=== PATIENT | male | born 1965 | race Caucasian/White ===

== ENCOUNTER 2017-02-23 05:15 | Day surgery (SDC) | payer OTHER ==
[2017-02-16 09:44] LABS: HEMATOCRIT 44.9 % (37.9-51.0); HEMOGLOBIN 14.9 g/dL (13.5-17.0); HGB HCT DIFFERENCE -0.2; MEAN CORPUSCULAR HEMOGLOBIN 29.7 pg (27.0-33.4); MEAN CORPUSCULAR HGB CONC 33.1 g/dL (32.0-36.0); MEAN CORPUSCULAR VOLUME 90 fl (80-97); RED BLOOD COUNT 5.01 10^6/uL (4.35-5.55); RED CELL DISTRIBUTION WIDTH 13.1 % (11.5-14.0); WHITE BLOOD COUNT 5.6 10^3/uL (4.0-10.5)
--- NOTE | 2017-02-16 14:11 | EKG REPORT ---
SEVERITY:- BORDERLINE ECG - SINUS RHYTHM BORDERLINE LEFT AXIS DEVIATION BORDERLINE T WAVE ABNORMALITIES : Confirmed by: Lonny Watson MD 16-Feb-2017 14:11:06
[~2017-02-23 05:15] MED LIST: ACETAMINOPHEN 325 MG TABLET PO PRN; CEFAZOLIN 1 GM/D5W RTU 1 GM/50 ML RTUPB IV PRN; LACTATED RINGERS 1000 ML IV PRN; LIDOCAINE 0.5% INJ-PF (5 MG/ML) 50 ML SDV SUBCUT PRN
[2017-02-23] MEDS ORDERED: BUPIVACAINE HCL 0.25 % INJ/PF (2.5 MG/1 ML) 30 ML VIAL ONE (06:57)
[2017-02-23] MEDS ORDERED: PROPOFOL INJ 200 MG/20 ML VIAL IV ONE (07:01)
[2017-02-23] MEDS ORDERED: DEXMEDETOMIDINE INJ 80 MCG/20 ML VIAL IV ONE (07:01)
[2017-02-23] MEDS ORDERED: EPHEDRINE SULFATE INJ 50 MG/1 ML AMPULE ONE (07:01)
[2017-02-23] MEDS ORDERED: FENTANYL CITRATE INJ/PF 250 MCG/5 ML AMPULE ONE (07:01)
[2017-02-23] MEDS ORDERED: ACETAMINOPHEN 100 ML IV ONE (07:01)
[2017-02-23] MEDS ORDERED: MIDAZOLAM 2 MG/2 ML INJ ONE (07:01)
[2017-02-23] MEDS ORDERED: DIPHENHYDRAMINE HCL 50 MG/ML VIAL IV PRN (07:58)
[2017-02-23] MEDS ORDERED: MEPERIDINE HCL/PF INJ 25 MG/1 ML DISP.SYRIN IV PRN (07:58)
[2017-02-23] MEDS ORDERED: ONDANSETRON HCL INJ/PF 4 MG/2 ML SDV IV PRN ×2 (07:58→08:37)
[2017-02-23] MEDS ORDERED: FENTANYL CITRATE INJ/PF 100 MCG/2 ML AMPUL IV PRN ×3 (07:58)
[2017-02-23] MEDS ORDERED: PROMETHAZINE HCL INJ 25 MG/1 ML VIAL IV PRN ×2 (07:58)
[2017-02-23] MEDS ORDERED: OXYCODONE-ACETAMINOPHEN 5-325 MG TABLET PO PRN (08:37)
[2017-02-23] MEDS ORDERED: RINGERS SOLUTION,LACTATED 1,000 ML IV PRN (08:37)
--- NOTE | 2017-02-23 08:37 | Operative Report ---
Operative Report DATE OF SURGERY: 02/23/17 PREOPERATIVE DIAGNOSIS: Umbilical hernia POSTOPERATIVE DIAGNOSIS: Same OPERATION: 1. Laparoscopic lysis of adhesions. 2. Laparoscopic umbilical hernia with primary defect closure SURGEON: JORGE SOLORZANO ANESTHESIA: GA COMPLICATIONS: 9 ESTIMATED BLOOD LOSS: scant INTRAOPERATIVE FINDINGS: See below PROCEDURE: Patient was taken from the preoperative holding area to the main operating room where general anesthesia was induced. The right arm was abducted and the left arm laid at the patient's side . The abdomen was exposed, hair shaved, then prepped and draped in sterile fashion. Surgical plan and surgical timeout conducted Skin was anesthetized in the left upper quadrant with quarter percent Marcaine. Knife 11 blade used to make an incision in a varies needle inserted into the peritoneal cavity and pneumoperitoneum was established. The Veress needle was removed, and a 5 mm port was inserted, a 5 mm flexible scope was inserted under direct visualization 2 additional ports were placed one 5 mm in the left lower quadrant and a third port in the right mid field. Findings were significant for portions of the greater omentum stuck to the anterior abdominal wall at the level of the umbilicus and inferiorly along the midline. The omentum and adhesions were taken down under direct visualization using electrocautery and sharp dissection. Bleeding was negligible The fascial defect was approximately 1 cm in diameter. We closed the defect using a #1 PDS suture in a aggravated fashion using the disposable suture passer. The suture was passed transabdominally. We then reinforced the primary closure with a mesh prosthesis. A Covidian, 9 cm PARIETEX mesh was brought onto the field after checking for expiration date. It was affixed at the 12, 3, 6, 9:00 positions with a 1 PDS suture. The mesh was rolled, brought the anterior abdominal wall uneventfully through one of the port site holes. The mesh was unfolded and brought up to the anterior abdominal wall at the 12 3 , 6 and 9:00 positions using the disposable suture passer. We then secured the mesh further with approximately 15 Parietex manan. Conclusion photographs were taken. Intestines were checked and there was no evidence of injury. Sponge and needle counts are correct. The operation was deemed complete. After evacuation of CO2 wounds closed with 3-0 Vicryl benzoin and Steri-Strips after ensuring all skin and subcutaneous tissue was free of secured knots. Patient tolerated procedure well and extubated to recovery in stable condition.
--- NOTE | 2017-02-23 08:41 | PDOC DISCHARGE SUMMARY ---
Discharge Summary (SDC) - Discharge Final Diagnosis: Umbilical hernia Date of Surgery: 02/23/17 Discharge Date: 02/23/17 Condition: Good Treatment or Instructions: [facility] [address] [place] [id number] Discharge Instructions: Laparoscopic Surgery 1. General Information: a. DO NOT DRIVE a car or operate dangerous machinery for 3-4 days or while taking narcotic pain pills. b. DO NOT consume alcohol, tranquilizers, sleeping medications or any non- prescribed medications for 24 hours unless approved by your doctor or as long as taking narcotic prescription medications. c. DO NOT make important decisions or sign any important papers for the first 24 hours after surgery. d. When discharged home the same day of surgery have a responsible person with you for the first night. 2. Activity Restrictions: 4 weeks. a. NO heavy lifting, straining abdominal muscles, bending over a lot, yard work, house work, or sports for 2 weeks. b. . c. It is fine to go for walks, up and down steps, ride in a car. d. Elevate your head when sleeping/resting. 3. Treatment: a. You may shower 24 hours after surgery, no baths or swimming for 2 weeks. Remove band-aids or dressings before shower but leave paper strips (steri-strips ) on the skin to fall off on their own. If still on at postoperative visit they will be removed then. b. Drainage of fluid or blood is not unusual from an incision. If occurs, you can clean with peroxide and cotton ball daily and cover with dry gauze until the wound seals. c. If a lot of bleeding occurs, you can hold pressure with a gauze or cloth over the site for 10 minutes and it will usually stop. If bleeding continues you will need to call for possible evaluation in office or emergency room. 4. Medications: a. Toradol may be taken for pain as needed, one or two tablets every 4-6 hours. You may switch to plain Tylenol, Advil or Aleve as you transition from the narcotic. Many adults find good pain relief with Advil 600-800 mg three times a day with meals. This can cause indigestion, ulcers, and kidney problems with long-term use. b. You should resume all normal medications unless a change is specified by your doctors. c. Begin with clear liquids and may progress to your normal diet if not nauseated. No high fat, high protein foods the day of surgery. Normal diet 6. The following may occur after laparoscopic surgery: a. Shoulder or upper back ache from retained gas that should resolve in 1-2 days b. Soreness and bruising at incision sites will resolve with time. c. Scrotal swelling (labia in women) and bruising is often seen after hernia surgery. d. Sore throat e. Fatigue may last days to weeks. f. Difficulty urinating may occur and may need to come into emergency room for urinary catheter placement. 7. Notify Physician If: a. Worsening or pain not improved with pain medication b. Persistent nausea and vomiting c. Fever above 101 d. Persistent bleeding or swelling at operative site e. Unable to urinate and uncomfortable bladder 6-8 hours after surgery 8..Follow Up Care: a. Schedule a follow up appointment with your doctor for 2 weeks. In the event of any postoperative problems or questions or you may call the office during business hours or the On-Call physician evenings and weekends at [facility]. [facility] I understand the instructions for my postoperative care as described above and a copy has been given to me. Patient/Significant Other Witness Date Prescriptions: Ketorolac Tromethamine [Toradol 10 mg Tablet] 10 mg PO Q6 #20 tablet Discharge Activity: Activity As Tolerated, No Lifting Over 10 Pounds, No Lifting /Push/Pulling Report the Following to Your Physician Immediately: Shortness of Breath, Increase in Pain, Fever over 101 Degrees
[2017-02-23 10:38] VITALS: BP 102/67
[2017-02-23] MEDS ORDERED: METOCLOPRAMIDE HCL INJ/PF 10 MG/2 ML SDV ONE (11:43)
[2017-02-23] MEDS ORDERED: ROCURONIUM BROMIDE INJ 50 MG/5 ML VIAL IV ONE (11:43)
[2017-02-23] MEDS ORDERED: NEOSTIGMINE METHYLSULFATE 10 MG/10 ML VIAL ONE (11:43)
[2017-02-23] MEDS ORDERED: PHENYLEPHRINE HCL INJ/PF 10 MG/1 ML SDV ONE (11:43)
[2017-02-23] MEDS ORDERED: LIDOCAINE 2% INJ-PF (20 MG/ML) 10 ML AMPUL ONE (11:43)
[2017-02-23] MEDS ORDERED: DEXAMETHASONE SOD PHOSPHATE INJ 4 MG/1 ML VIAL ONE (11:43)
[2017-02-23] MEDS ORDERED: ONDANSETRON HCL INJ/PF 4 MG/2 ML SDV ONE (11:43)
[2017-02-23] MEDS ORDERED: SUCCINYLCHOLINE CHLORIDE INJ 200 MG/10 ML VIAL ONE (11:43)
[2017-02-23] MEDS ORDERED: GLYCOPYRROLATE INJ 0.4 MG/2 ML VIAL ONE (11:43)
== END 2017-02-23 09:40 | disposition home or self-care (01) ==
LOC: OROUT 05:15
PROVIDERS: ATTEND Surgery
PROC: 0WUF4JZ Supplement Abdominal Wall with Synthetic Substitute, Percutaneous Endoscopic Approach (ICD-10-PCS; principal; 2017-02-23 07:30)
DX: K42.9 Umbilical hernia without obstruction or gangrene (principal); I10 Essential (primary) hypertension; Z87.891 Personal history of nicotine dependence; Z79.899 Other long term (current) drug therapy
CPT/HCPCS: 93005; 36415; 85027; 93010; 49652; C1781; J2250; J0690; J3490 ×3; J1100; J3010; J2765; J2370; J0330; J2405; J2704; J0131; 750

== ENCOUNTER 2018-01-15 10:08 | Emergency (ER) | payer OTHER ==
--- NOTE | 2018-01-15 10:48 | EKG REPORT ---
SEVERITY:- NORMAL ECG - SINUS RHYTHM : Confirmed by: Kenneth Mir 15-Jan-2018 10:47:33
--- NOTE | 2018-01-15 11:31 | ER Document Report ---
ED General - General Chief Complaint: Arrhythmia Stated Complaint: POSSIBLE HEARTRATE ISSUE Notes: Patient says that he is been experiencing an abnormal pulse since yesterday afternoon. He describes these pulses as "pauses" which for a few seconds takes his breath away. His was able to feel the pauses when she checked his pulse. He had an episode similar to this about a year or so ago when he was started on blood pressure medicines and his symptoms subsided. He has not run out of his medications and has been taking them as prescribed. Patient went to his primary care provider yesterday for sinus congestion and symptoms for a couple of days. He was having some frontal headache and pressure behind his eyes. He was diagnosed with sinusitis and given amoxicillin and Mucinex with pseudoephedrine, 60 mg in each pill with the directions to take 2 pills twice a day which she started yesterday morning. He says his sinus congestion symptoms have not improved and he is still wheezing, throughout the night and noting the irregular pulses throughout the night as well. He has a cough but it is difficult to get anything up. Has not had any chest pains at all. Not aware of any fever. Not a smoker. TRAVEL OUTSIDE OF THE [place] IN LAST 30 DAYS: No - Related Data Allergies/Adverse Reactions: No Known Allergies Allergy (Verified 01/15/18 10:12) Past Medical History - Social History Smoking Status: Unknown if Ever Smoked Cigarette use (# per day): No Family History: Reviewed & Not Pertinent - Past Medical History Cardiac Medical History: Reports: Hx Hypertension - on meds Denies: Hx Coronary Artery Disease Pulmonary Medical History: Denies: Hx Asthma, Hx Bronchitis, Hx COPD, Hx Pneumonia Neurological Medical History: Denies: Hx Cerebrovascular Accident, Hx Seizures Musculoskeltal Medical History: Denies Hx Arthritis Surgical Hx: Negative Past Surgical History: Reports: None - Immunizations Hx Diphtheria, Pertussis, Tetanus Vaccination: Yes Review of Systems - Review of Systems Notes: REVIEW OF SYSTEMS: CONSTITUTIONAL : Denies fever. EENT: Denies eye, ear, mouth or throat pain or other symptoms. Nose, see HPI. CARDIOVASCULAR: Denies chest pain. See HPI. RESPIRATORY: See HPI. GASTROINTESTINAL: Denies abdominal pain or nausea, vomiting, or diarrhea. GENITOURINARY: Denies difficulty or painful urinating, urinary frequency, blood in urine. MUSCULOSKELETAL: Denies back or neck pain. Denies joint pain or swelling. SKIN: Denies rash or skin lesions. NEUROLOGICAL: Denies LOC or altered mental status. Denies sensory loss or motor deficits. ALL OTHER SYSTEMS REVIEWED AND NEGATIVE. Physical Exam - Vital signs Vitals: Resp BP Pulse Ox 16 121/84 98 01/15/18 11:01 01/15/18 11:01 01/15/18 11:01 Interpretation: Normal Course - Re-evaluation Re-evalutation: 01/15/18 12:55 Entire workup normal except for 8 bands on the patient's CBC. He is on amoxicillin antibiotics which I think will take care of that problem. His chest x-ray is normal. Patient has not had any premature beats since he arrived here. He has not felt any, his has not seen any on the monitor, and we have not see any on the monitor. Additionally, patient did take 2 of the Mucinex this morning and, in spite of that, he does not have any symptoms. Absolutely no chest pains. Suggested the patient hold off on taking the Mucinex, but take the amoxicillin. - Vital Signs Vital signs: Temp Pulse Resp BP Pulse Ox 25 H 129/85 H 96 01/15/18 13:00 01/15/18 13:00 01/15/18 13:00 - Laboratory Result Diagrams: 01/15/18 11:46 01/15/18 11:46 Laboratory results interpreted by me: 01/15/18 01/15/18 11:46 11:46 WBC 3.6 L Band Neutrophils % 8 H Monocytes % (Manual) 14 H Sodium 135.7 L - Diagnostic Test Radiology results interpreted by me: 01/15/18 12:57 Chest x-ray is normal. - EKG Interpretation by Dc EKG shows normal: Sinus rhythm - At 81/min. Rate: Normal Rhythm: NSR Additional EKG results interpreted by tn: 01/15/18 12:58 EKG is normal. Discharge - Discharge Clinical Impression: Intermittent palpitations, Premature beats, unspecified Condition: Stable Disposition: HOME, SELF-CARE Additional Instructions: Palpitations (Irregular/Rapid Heartrate) Irregular or rapid heartbeat is called "palpitation." To diagnose the cause of palpitation, we have to "catch it in the act" with an EKG. Sinus Tachycardia: This is a rapid (but NORMAL) rhythm that can be due to fever, pain, anxiety, lack of sleep, over-exertion, or drugs. Cold medications, caffeine, and diet pills are particularly likely to cause tachycardia. Usually , all that's required is rest, reassurance, and avoiding caffeine, alcohol, nicotine, and unnecessary medicines. Paroxysmal Atrial Tachycardia (PAT): This abnormally rapid heartbeat is caused by a "short circuit" in the electrical system of the heart. It is not dangerous, unless other heart disease is present. These attacks of PAT may occur occasionally for years. Medication is available for treatment. Paroxysmal Atrial Fibrillation or Atrial Flutter: This is irregular electrical activity in the upper heart chamber. These abnormal rhythms often occur with valve disease or in hearts damaged by hardening of the arteries. These rhythms usually require further testing, for example a cardiac echo. Premature Beats: Extra beats occur more commonly after caffeine, nicotine , alcohol, cold pills, diet pills. Emotional stress or fatigue also provoke them. Extra beats are only dangerous when heart disease is present. They usually need no treatment. If they're frequent, or if evidence of heart disease develops, medication can be given to suppress them. If we were unable to "catch" the palpitations on EKG, you should try to get an EKG immediately if the symptoms begin again. Contact the physician at once if you develop persistent lightheadedness, shortness of breath, chest pain , or swelling of the ankles. NORMAL EXAM AND WORKUP: At this time, your examination and workup show no significant abnormality. No significant abnormal physical findings were noted. All laboratory, EKG, and imaging (x-ray, CT scans, ultrasound) studies that were ordered show no significant abnormality. Although your examination and all studies that were ordered showed no significant abnormal finding, there are no examinations and no studies that are 100% accurate. There is always the possibility that some abnormality could exist and not be detected with physical examination or within the limits and capabilities of laboratory and other studies. You should return or follow up as you were instructed on your visit today for further evaluation if your symptoms do not resolve. Continue to take your amoxicillin as prescribed. I would suggest to hold off on taking any more of the Mucinex for now. Drink plenty of fluids. Rest. Return for reevaluation if you develop any chest pains, high fevers, or any other new symptoms. FOLLOW-UP CARE: If you have been referred to a physician for follow-up care, call the physician s office for an appointment as you were instructed or within the next two days. If you experience worsening or a significant change in your symptoms, notify the physician immediately or return to the Emergency Department at any time for re-evaluation. Referrals: FESTUS JESSICA MD [Primary Care Provider] - Follow up as needed
[2018-01-15 12:06] LABS: MEAN CORPUSCULAR HEMOGLOBIN 29.7 pg (27.0-33.4); MEAN CORPUSCULAR HGB CONC 33.4 g/dL (32.0-36.0); MEAN CORPUSCULAR VOLUME 89 fl (80-97); PLATELET COUNT 214 10^3/uL (150-450); RED BLOOD COUNT 5.05 10^6/uL (4.35-5.55); RED CELL DISTRIBUTION WIDTH 13.2 % (11.5-14.0); WHITE BLOOD COUNT 3.6 10^3/uL (4.0-10.5)
--- NOTE | 2018-01-15 12:08 | RADIOLOGY REPORT (SQ) ---
EXAM DESCRIPTION: CHEST PA/LAT COMPLETED DATE/TIME: 01/15/2018 11:58 am REASON FOR STUDY: Cough and chest congestion COMPARISON: 01/29/2011. EXAM PARAMETERS: NUMBER OF VIEWS: two views TECHNIQUE: Digital Frontal and Lateral radiographic views of the chest acquired. RADIATION DOSE: NA LIMITATIONS: none FINDINGS: LUNGS AND PLEURA: No opacities, masses or pneumothorax. No pleural effusion. MEDIASTINUM AND HILAR STRUCTURES: No masses or contour abnormalities. HEART AND VASCULAR STRUCTURES: Heart normal size. No evidence for failure. BONES: No acute findings. HARDWARE: None in the chest. OTHER: No other significant finding. IMPRESSION: NO SIGNIFICANT RADIOGRAPHIC FINDING IN THE CHEST. TECHNICAL DOCUMENTATION: JOB ID: [id number] [employer]- All Rights Reserved Reading location - IP/workstation name: [email or web address]
[2018-01-15 12:21] LABS: ALANINE AMINOTRANSFERASE 34 U/L (21-72); ALCOHOL < 10 mg/dL (NONE DETECTED); ALKALINE PHOSPHATASE 105 U/L (38-126); ANION GAP 13 (5-19); ASPARTATE AMINO TRANSFERASE 29 U/L (17-59); BILIRUBIN,DIRECT 0.2 mg/dL (0.0-0.4); BILIRUBIN,TOTAL 0.5 mg/dL (0.2-1.3); BLOOD UREA NITROGEN 16 mg/dL (7-20); CALCIUM 8.7 mg/dL (8.4-10.2); CARBON DIOXIDE 23 mmol/L (22-30); CHLORIDE 100 mmol/L (98-107); GLUCOSE 87 mg/dL (75-110); POTASSIUM 4.1 mmol/L (3.6-5.0); SODIUM 135.7 mmol/L (137-145); TOTAL PROTEIN 6.3 g/dL (6.3-8.2)
[2018-01-15 12:23] LABS: ABSOLUTE LYMPHOCYTES# (MANUAL) 0.6 10^3/uL (0.5-4.7); ABSOLUTE MONOCYTES # (MANUAL) 0.5 10^3/uL (0.1-1.4); ABSOLUTE NEUTROPHILS# (MANUAL) 2.4 10^3/uL (1.7-8.2); BAND NEUTROPHILS % (MANUAL) 8 % (3-5); BASOPHILS % (MANUAL) 0 % (0-2); EOSINOPHILS % (MANUAL) 1 % (0-6); HYPOCHROMASIA SLIGHT; LYMPHOCYTES % (MANUAL) 17 % (13-45); MONOCYTES % (MANUAL) 14 % (3-13); PLATELET COMMENT ADEQUATE; SEGMENTED NEUTROPHILS % (MAN) 60 % (42-78); TOTAL CELLS COUNTED 100
[2018-01-15 12:31] LABS: CREATINE KINASE MB 0.44 ng/mL (<4.55)
[2018-01-15 12:33] LABS: TROPONIN I < 0.012 ng/mL
[2018-01-15 13:02] VITALS: BP 129/85
== END 2018-01-15 13:07 | disposition home or self-care (01) ==
LOC: ER 10:08
DX: I49.40 Unspecified premature depolarization (principal); R00.2 Palpitations; R09.81 Nasal congestion; R51 Headache
CPT/HCPCS: 36415; 71046; 80053; 80307; 82553; 83735; 84484; 85025; 93005; 93010; 99285

== ENCOUNTER 2018-07-21 01:41 | Inpatient (IN) | payer OTHER ==
[2018-07-21] MEDS ORDERED: DILTIAZEM HCL/D5W 125 MG/125 ML RTUINJ IV PRN ×2 (01:56→09:39)
[2018-07-21] MEDS ORDERED: DILTIAZEM HCL INJ 25 MG/5 ML VIAL IV ONE (01:57)
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
[2018-07-21 02:22] LABS: ABSOLUTE BASOPHILS # (AUTO) 0.1 10^3/uL (0.0-0.2); ABSOLUTE EOSINOPHILS # (AUTO) 0.4 10^3/uL (0.0-0.6); ABSOLUTE LYMPHOCYTES (AUTO) 3.5 10^3/uL (0.5-4.7); ABSOLUTE MONOCYTES (AUTO) 1.1 10^3/uL (0.1-1.4); ABSOLUTE NEUT (AUTO) 3.3 10^3/uL (1.7-8.2); BASOPHILS % (AUTO) 0.9 % (0-2); EOSINOPHILS % (AUTO) 4.3 % (0-6); HEMATOCRIT 43.9 % (37.9-51.0); HEMOGLOBIN 14.6 g/dL (13.5-17.0); LYMPHOCYTES % (AUTO) 42.1 % (13-45); MEAN CORPUSCULAR HEMOGLOBIN 29.7 pg (27.0-33.4); MEAN CORPUSCULAR HGB CONC 33.1 g/dL (32.0-36.0); MEAN CORPUSCULAR VOLUME 90 fl (80-97); MONOCYTES % (AUTO) 13.3 % (3-13); PLATELET COUNT 340 10^3/uL (150-450); RED CELL DISTRIBUTION WIDTH 13.4 % (11.5-14.0); SEGMENTED NEUTROPHILS % (AUTO) 39.4 % (42-78); TOTAL CELLS COUNTED % (AUTO) 100 %; WHITE BLOOD COUNT 8.4 10^3/uL (4.0-10.5)
[2018-07-21] MEDS ORDERED: NITROGLYCERIN 2% OINTMENT 1 GM PACKET TP ONE (02:31)
[2018-07-21 02:32] LABS: ALANINE AMINOTRANSFERASE 37 U/L (21-72); ALBUMIN 4.4 g/dL (3.5-5.0); ALKALINE PHOSPHATASE 90 U/L (38-126); ANION GAP 13 (5-19); ASPARTATE AMINO TRANSFERASE 30 U/L (17-59); BILIRUBIN,DIRECT 0.3 mg/dL (0.0-0.4); BILIRUBIN,TOTAL 1.1 mg/dL (0.2-1.3); BLOOD UREA NITROGEN 21 mg/dL (7-20); CALCIUM 9.6 mg/dL (8.4-10.2); CARBON DIOXIDE 22 mmol/L (22-30); CHLORIDE 108 mmol/L (98-107); GLUCOSE 109 mg/dL (75-110); POTASSIUM 4.1 mmol/L (3.6-5.0); SODIUM 142.6 mmol/L (137-145); TOTAL PROTEIN 7.4 g/dL (6.3-8.2)
--- NOTE | 2018-07-21 02:32 | RADIOLOGY REPORT (SQ) ---
EXAM DESCRIPTION: XR CHEST 1 VIEW COMPLETED DATE/TME: 07/21/2018 01:57 CLINICAL HISTORY: 53 years Male, atrial fib COMPARISON: None. NUMBER OF VIEWS/TECHNIQUE: 1/AP FINDINGS: Adequate lung volume, small left basilar atelectasis or scar, normal cardiac silhouette, and intact bony thorax. IMPRESSION: No acute cardiopulmonary findings.
[2018-07-21 02:40] LABS: INTERNATIONAL RATION (INR) 0.91; PROTHROMBIN TIME 12.8 SEC (11.4-15.4)
[2018-07-21 02:41] LABS: PARTIAL THROMBOPLASTIN TIME 28.7 SEC (23.5-35.8)
[2018-07-21] MEDS ORDERED: LORAZEPAM INJ 2 MG/1 ML VIAL IV ONE (03:14)
[2018-07-21] MEDS ORDERED: ASPIRIN 81 MG TABLET, CHEWABLE PO ONE (03:17)
[2018-07-21] MEDS ORDERED: ENOXAPARIN SODIUM INJ 100 MG/1 ML DISP.SYRIN SUBCUT SCH ×3 (04:00→18:00)
[2018-07-21] MEDS ORDERED: ZOLPIDEM TARTRATE 5 MG TABLET PO PRN (05:10)
[2018-07-21] MEDS ORDERED: ACETAMINOPHEN 325 MG TABLET PO PRN (05:10)
--- NOTE | 2018-07-21 05:58 | PDOC H&P ---
History of Present Illness Admission Date/PCP: 07/21/18 04:01 FESTUS JESSICA MD Patient complains of: Palpitations History of Present Illness: ROSS CALHOUN III is a 53 year old male with a past medical history of hypertension and intermittent palpitations over the last 3 years. Today he presents with sudden onset of palpitations and chest tightness prompting evaluation in the emergency room he is found to have A. fib with RVR he receives IV Cardizem with improvement of symptoms and heart rate in the low 100s. He is referred to the hospitalist for admission. Patient adamantly denies heat intolerance or weight loss, new medication, Sudafed, caffeine for alcohol. Biochemical workup is unremarkable, family history of atrial fibrillation in father. Past Medical History Cardiac Medical History: Reports: Atrial Fibrillation, Hypertension - on meds Denies: Coronary Artery Disease Pulmonary Medical History: Denies: Asthma, Bronchitis, Chronic Obstructive Pulmonary Disease (COPD), Pneumonia EENT Medical History: Reports: None Neurological Medical History: Reports: None Denies: Seizures Endocrine Medical History: Reports: None Malignancy Medical History: Reports: None GI Medical History: Reports: None Musculoskeltal Medical History: Reports: None Denies: Arthritis Skin Medical History: Reports: None Psychiatric Medical History: Reports: None Hematology: Reports: None Denies: Anemia Infectious Medical History: Reports: None Past Surgical History Past Surgical History: Reports: None Social History Information Source: Patient Lives with: Spouse/Significant other Smoking Status: Never Smoker Frequency of Alcohol Use: None Drugs: None - Advance Directive Resuscitation Status: Full Code Family History Family History: None Parental Family History Reviewed: Yes Children Family History Reviewed: Yes Sibling(s) Family History Reviewed.: Yes Medication/Allergy Home Medications: Losartan Potassium 50 mg PO BID 02/04/17 Ketorolac Tromethamine [Toradol 10 mg Tablet] 10 mg PO Q6 #20 tablet 02/23/17 Allergies/Adverse Reactions: No Known Allergies Allergy (Verified 01/15/18 10:12) Review of Systems Constitutional: ABSENT: chills, fever(s), headache(s), weight gain, weight loss Eyes: ABSENT: visual disturbances Ears: ABSENT: hearing changes Cardiovascular: PRESENT: as per HPI, palpitations. ABSENT: chest pain, dyspnea on exertion, edema, orthropnea Respiratory: ABSENT: cough, hemoptysis Gastrointestinal: ABSENT: abdominal pain, constipation, diarrhea, hematemesis, hematochezia, nausea, vomiting Genitourinary: ABSENT: dysuria, hematuria Musculoskeletal: ABSENT: joint swelling Integumentary: ABSENT: rash, wounds Neurological: ABSENT: abnormal gait, abnormal speech, confusion, dizziness, focal weakness, syncope Psychiatric: ABSENT: anxiety, depression, homidical ideation, suicidal ideation Endocrine: ABSENT: cold intolerance, heat intolerance, polydipsia, polyuria Hematologic/Lymphatic: ABSENT: easy bleeding, easy bruising Physical Exam Vital Signs: Temp Pulse Resp BP Pulse Ox 97.5 F 108 H 18 106/69 95 07/21/18 01:47 07/21/18 01:47 07/21/18 05:41 07/21/18 05:41 07/21/18 05:41 General appearance: PRESENT: no acute distress, well-developed, well-nourished Head exam: PRESENT: atraumatic, normocephalic Eye exam: PRESENT: conjunctiva pink, EOMI, PERRLA. ABSENT: scleral icterus Ear exam: PRESENT: normal external ear exam Mouth exam: PRESENT: moist, tongue midline Neck exam: ABSENT: carotid bruit, JVD, lymphadenopathy, thyromegaly Respiratory exam: PRESENT: clear to auscultation elise. ABSENT: rales, rhonchi, wheezes Cardiovascular exam: PRESENT: irregular rhythm, tachycardia. ABSENT: clicks, diastolic murmur, gallop, rubs, systolic murmur Pulses: PRESENT: normal dorsalis pedis pul Vascular exam: PRESENT: normal capillary refill GI/Abdominal exam: PRESENT: normal bowel sounds, soft. ABSENT: distended, guarding, mass, organolmegaly, rebound, tenderness Rectal exam: PRESENT: deferred Extremities exam: PRESENT: full ROM. ABSENT: calf tenderness, clubbing, pedal edema Neurological exam: PRESENT: alert, awake, oriented to person, oriented to place , oriented to time, oriented to situation, CN II-XII grossly intact. ABSENT: motor sensory deficit Psychiatric exam: PRESENT: appropriate affect, normal mood. ABSENT: homicidal ideation, suicidal ideation Skin exam: PRESENT: dry, intact, warm. ABSENT: cyanosis, rash Results Impressions: Chest X-Ray 07/21/18 01:57 IMPRESSION: No acute cardiopulmonary findings. Assessment & Plan - Diagnosis (1) Atrial fibrillation Qualifiers: Atrial fibrillation type: persistent Qualified Code(s): I48.1 - Persistent atrial fibrillation Is this a current diagnosis for this admission?: Yes Plan: Apparently paroxysmal by history, positive family history otherwise unidentifiable current reversible risk. IMCU admission, IV Cardizem, full dose Lovenox and education. Follow-up 2D echo and cardiology consult (2) Hypertension Is this a current diagnosis for this admission?: Yes Plan: Optimize rate control with addition of GUILHERME inhibitor as tolerated - Time Time Spent: 50 to 70 Minutes - Inpatient Certification Medical Necessity: Need Close Monitoring Due to Risk of Patient Decompensation
[2018-07-21 06:04] LABS: CREATINE KINASE MB 1.55 ng/mL (<4.55)
[2018-07-21 06:17] LABS: TROPONIN I < 0.012 ng/mL
[2018-07-21 09:27] LABS: FREE T3 4.59 pg/mL (2.77-5.27); FREE T4 (FREE THYROXINE) 1.08 ng/dL (0.78-2.19)
[2018-07-21] MEDS: DOCUSATE SODIUM 100 MG CAPSULE PO SCH ×2 (10:06→17:54)
[2018-07-21 10:40] LABS: APPEARANCE,URINE CLEAR; BILIRUBIN,URINE NEGATIVE (NEGATIVE); COLOR,URINE YELLOW; GLUCOSE, URINE NEGATIVE (NEGATIVE); KETONES,URINE NEGATIVE (NEGATIVE); LEUKOCYTE ESTERASE,URINE NEGATIVE (NEGATIVE); NITRITE,URINE NEGATIVE (NEGATIVE); PROTEIN,URINE NEGATIVE (NEGATIVE); URINE SPECIFIC GRAVITY 1.016; UROBILINOGEN,URINE NEGATIVE mg/dL (<2.0)
[2018-07-21 11:44] LABS: TROPONIN I < 0.012 ng/mL
[2018-07-21] MEDS ORDERED: METOPROLOL TARTRATE 25 MG TABLET PO ONE (12:00)
[2018-07-21] MEDS: APIXABAN 5 MG TABLET PO SCH (17:54)
[2018-07-21] MEDS: METOPROLOL TARTRATE 25 MG TABLET PO SCH (22:02)
--- NOTE | 2018-07-21 23:56 | EKG REPORT ---
SEVERITY:- BORDERLINE ECG - SINUS RHYTHM LEFT AXIS DEVIATION BORDERLINE T WAVE ABNORMALITIES : Confirmed by: Kenneth Mir 21-Jul-2018 23:55:01
--- NOTE | 2018-07-21 23:56 | EKG REPORT ---
SEVERITY:- ABNORMAL ECG - ATRIAL FIBRILLATION BORDERLINE ST DEPRESSION, ANTEROLATERAL LEADS BORDERLINE PROLONGED QT INTERVAL : Confirmed by: Kenneth Mir 21-Jul-2018 23:55:35
--- NOTE | 2018-07-21 23:56 | EKG REPORT ---
SEVERITY:- ABNORMAL ECG - ATRIAL FIBRILLATION : Confirmed by: Kenneth Mir 21-Jul-2018 23:55:19
[2018-07-22 05:04] LABS: ABSOLUTE BASOPHILS # (AUTO) 0.1 10^3/uL (0.0-0.2); ABSOLUTE EOSINOPHILS # (AUTO) 0.2 10^3/uL (0.0-0.6); ABSOLUTE LYMPHOCYTES (AUTO) 2.2 10^3/uL (0.5-4.7); ABSOLUTE MONOCYTES (AUTO) 0.8 10^3/uL (0.1-1.4); ABSOLUTE NEUT (AUTO) 2.7 10^3/uL (1.7-8.2); HEMATOCRIT 41.4 % (37.9-51.0); HEMOGLOBIN 13.9 g/dL (13.5-17.0); MEAN CORPUSCULAR HEMOGLOBIN 29.9 pg (27.0-33.4); MEAN CORPUSCULAR HGB CONC 33.6 g/dL (32.0-36.0); MEAN CORPUSCULAR VOLUME 89 fl (80-97); MONOCYTES % (AUTO) 12.5 % (3-13); PLATELET COUNT 283 10^3/uL (150-450); RED BLOOD COUNT 4.65 10^6/uL (4.35-5.55); RED CELL DISTRIBUTION WIDTH 13.3 % (11.5-14.0); SEGMENTED NEUTROPHILS % (AUTO) 45.5 % (42-78); TOTAL CELLS COUNTED % (AUTO) 100 %
[2018-07-22 05:24] LABS: ANION GAP 5 (5-19); BLOOD UREA NITROGEN 20 mg/dL (7-20); CALCIUM 8.9 mg/dL (8.4-10.2); CARBON DIOXIDE 25 mmol/L (22-30); CHLORIDE 107 mmol/L (98-107); CHOLESTEROL 184.86 mg/dL (0-200); GLUCOSE 95 mg/dL (75-110); POTASSIUM 4.5 mmol/L (3.6-5.0); SODIUM 136.9 mmol/L (137-145); TRIGLYCERIDES 116 mg/dL (<150)
[2018-07-22 05:35] LABS: DIRECT LDL 102 mg/dL (<100)
[2018-07-22 08:55] VITALS: BP 135/72
[2018-07-22] MEDS: APIXABAN 5 MG TABLET PO SCH (09:12)
[2018-07-22] MEDS: DOCUSATE SODIUM 100 MG CAPSULE PO SCH (09:12)
[2018-07-22] MEDS: METOPROLOL TARTRATE 25 MG TABLET PO SCH (09:12)
[2018-07-22] MEDS ORDERED: ASPIRIN 81 MG TABLET, CHEWABLE PO SCH (10:00)
--- NOTE | 2018-07-22 14:07 | PDOC DISCHARGE SUMMARY ---
General - Admit/Disc Date/PCP Admission Date/Primary Care Provider: 07/21/18 04:01 FESTUS JESSICA MD Discharge Date: 07/22/18 - Discharge Diagnosis (1) Atrial fibrillation Is this a current diagnosis for this admission?: Yes (2) Hypertension Is this a current diagnosis for this admission?: Yes - Additional Information Resuscitation Status: Full Code Prescriptions: Apixaban [Eliquis 5 mg Tablet] 5 mg PO BID #60 tablet Aspirin [Aspirin 81 mg Chewable Tablet] 81 mg PO DAILY #30 tab.chew Metoprolol Tartrate [Lopressor 25 mg Tablet] 12.5 mg PO Q12 #30 tablet Home Medications: Losartan Potassium 50 mg PO Q12 02/04/17 Acetaminophen [Tylenol 325 mg Tablet] 650 mg PO Q4HP PRN tablet 07/22/18 Apixaban [Eliquis 5 mg Tablet] 5 mg PO BID #60 tablet 07/22/18 Aspirin [Aspirin 81 mg Chewable Tablet] 81 mg PO DAILY #30 tab.chew 07/22/18 Docusate Sodium [Colace 100 mg Capsule] 100 mg PO BID capsule 07/22/18 Metoprolol Tartrate [Lopressor 25 mg Tablet] 12.5 mg PO Q12 #30 tablet 07/22/18 Zolpidem Tartrate [Ambien 5 mg Tablet] 5 mg PO HSP PRN tablet 07/22/18 History of Present Illness History of Present Illness: ROSS CALHOUN III is a 53 year old male with a past medical history of hypertension and intermittent palpitations who presented with sudden onset of palpitations and chest tightness prompting evaluation in the emergency room he is found to have A. fib with RVR. He received IV Cardizem with improvement of symptoms and heart rate in the low 100s. He was referred to the hospitalist for admission. Patient denies heat intolerance or weight loss, intake of new medication, Sudafed, caffeine or alcohol. Biochemical workup is unremarkable, family history of atrial fibrillation in father. Hospital Course Hospital Course: Mr. Calhoun is a 53-year-old male with a past medical history of hypertension and possible first episode of transient tachyarrhythmia 7-8 years ago who presented with palpitations. Patient was noted to be in atrial fibrillation with RVR on presentation. He was started Cardizem drip and therapeutic Lovenox. Troponins were negative. Cardiology was consulted. Patient's IV Cardizem was initially increased and patient converted to sinus rhythm. Patient was then started on oral Lopressor. Patient has a CHADVASC score of 1. Cardiology recommended chronic anticoagulation and aspirin. Discussed risks and benefits in length with patient and regarding switching to Eliquis. Patient and are amenable to continuing long-term anticoagulation. Patient will closely follow- up with Dr. Craig next week. He was given Dr. Shane's cell phone number to set up an appointment with him. Patient did have slightly elevated TSH with normal T3 and T4. He does not have symptoms of hypothyroidism at this time. This is subclinical hypothyroidism and will not be treated at this time. Recommended repeating TSH after 1-2 months with PCP. Physical Exam Vital Signs: Temp Pulse Resp BP Pulse Ox 97.5 F 57 L 16 118/74 99 07/22/18 03:37 07/22/18 03:37 07/22/18 03:37 07/22/18 03:37 07/22/18 03:37 Intake & Output 07/21/18 07/22/18 07/23/18 06:59 06:59 06:59 Intake Total 756 Balance 756 Weight 210 lb 5.136 oz 186 lb 8.177 oz General appearance: PRESENT: no acute distress, well-developed, well-nourished Head exam: PRESENT: atraumatic, normocephalic Eye exam: PRESENT: conjunctiva pink, EOMI, PERRLA. ABSENT: scleral icterus Ear exam: PRESENT: normal external ear exam Neck exam: ABSENT: carotid bruit, JVD, lymphadenopathy, thyromegaly Respiratory exam: PRESENT: clear to auscultation elise. ABSENT: rales, rhonchi, wheezes Cardiovascular exam: PRESENT: RRR. ABSENT: diastolic murmur, rubs, systolic murmur Pulses: PRESENT: normal dorsalis pedis pul GI/Abdominal exam: PRESENT: normal bowel sounds, soft. ABSENT: distended, guarding, mass, organolmegaly, rebound, tenderness Rectal exam: PRESENT: deferred Neurological exam: PRESENT: alert, awake, oriented to person, oriented to place , oriented to time, oriented to situation, CN II-XII grossly intact. ABSENT: motor sensory deficit Results Laboratory Results: 07/22/18 04:40 07/22/18 04:40 07/21/18 07/21/18 07/22/18 05:26 10:20 04:40 WBC RBC Hgb Hct MCV MCH MCHC RDW Plt Count Seg Neutrophils % Lymphocytes % Monocytes % Eosinophils % Basophils % Absolute Neutrophils Absolute Lymphocytes Absolute Monocytes Absolute Eosinophils Absolute Basophils Sodium 136.9 L Potassium 4.5 Chloride 107 Carbon Dioxide 25 Anion Gap 5 BUN 20 Creatinine 0.91 Est GFR ( Amer) > 60 Est GFR (Non-Af Amer) > 60 Glucose 95 Calcium 8.9 Triglycerides 116 Cholesterol 184.86 LDL Cholesterol Direct 102 H VLDL Cholesterol 23.0 HDL Cholesterol 44 Free T4 1.08 Free T3 pg/mL 4.59 Urine Color YELLOW Urine Appearance CLEAR Urine pH 5.0 Ur Specific [place] 1.016 Urine Protein NEGATIVE Urine Glucose (UA) NEGATIVE Urine Ketones NEGATIVE Urine Blood NEGATIVE Urine Nitrite NEGATIVE Ur Leukocyte Esterase NEGATIVE Urine WBC (Auto) 1 Urine RBC (Auto) 3 07/22/18 04:40 WBC 6.0 RBC 4.65 Hgb 13.9 Hct 41.4 MCV 89 MCH 29.9 MCHC 33.6 RDW 13.3 Plt Count 283 Seg Neutrophils % 45.5 Lymphocytes % 37.0 Monocytes % 12.5 Eosinophils % 4.0 Basophils % 1.0 Absolute Neutrophils 2.7 Absolute Lymphocytes 2.2 Absolute Monocytes 0.8 Absolute Eosinophils 0.2 Absolute Basophils 0.1 Sodium Potassium Chloride Carbon Dioxide Anion Gap BUN Creatinine Est GFR ( Amer) Est GFR (Non-Af Amer) Glucose Calcium Triglycerides Cholesterol LDL Cholesterol Direct VLDL Cholesterol HDL Cholesterol Free T4 Free T3 pg/mL Urine Color Urine Appearance Urine pH Ur Specific [place] Urine Protein Urine Glucose (UA) Urine Ketones Urine Blood Urine Nitrite Ur Leukocyte Esterase Urine WBC (Auto) Urine RBC (Auto) 07/21/18 07/21/18 07/21/18 05:26 05:26 11:01 Creatine Kinase 163 126 CK-MB (CK-2) 1.55 Troponin I < 0.012 07/21/18 11:01 Creatine Kinase CK-MB (CK-2) 1.40 Troponin I < 0.012 Impressions: Chest X-Ray 07/21/18 01:57 IMPRESSION: No acute cardiopulmonary findings. Qualifiers - * PATIENT BEING DISCHARGED WITH ANY OF THE FOLLOWING DIAGNOSIS: No
--- NOTE | 2018-07-22 21:22 | EKG REPORT ---
SEVERITY:- NORMAL ECG - SINUS RHYTHM NON SPECIFIC IVCD : Confirmed by: Kenneth Mir 22-Jul-2018 21:21:48
== END 2018-07-22 10:56 | disposition home or self-care (01) | DRG 310 ==
LOC: ER 01:41 → EH 04:01 → 3W 06:14
PROVIDERS: ADMIT Internal Medicine; ATTEND Internal Medicine
DX: I48.1 Persistent atrial fibrillation (principal); I10 Essential (primary) hypertension; R94.6 Abnormal results of thyroid function studies; Z79.82 Long term (current) use of aspirin; Z79.01 Long term (current) use of anticoagulants; Z79.899 Other long term (current) drug therapy; Z82.49 Family history of ischemic heart disease and other diseases of the circulatory system
CPT/HCPCS: 36415; 71045; 80048; 80053; 80061; 81001; 82550; 82553; 83735; 84439; 84443; 84481; 84484; 85025; 85379; 85610; 85730; 93005; 93010; 96365; 99285; J3490

== ENCOUNTER 2019-11-14 09:38 | Emergency (ER) | payer OTHER ==
--- NOTE | 2019-11-14 10:07 | ER Document Report ---
ED Medical Screen (RME) - General Chief Complaint: Urinary Problem Stated Complaint: URINARY ISSUE Time Seen by Provider: 11/14/19 10:00 Primary Care Provider: FESTUS JESSICA MD [Primary Care Provider] - Follow up as needed Mode of Arrival: Ambulatory Information source: Patient Notes: 54-year-old male with history of high blood pressure arrhythmias on Eliquis presents to the emergency department with complaints that couple days ago his urine started becoming cloudier. He reports he did increase his fluid intake, water. He reports today it was dark-colored almost bloody. He denies pain of any kind. Denies fever vomiting diarrhea. Denies flank pain. Denies problems voiding. Denies urinary frequency. Reports he has a history of a kidney stone many years ago. I have greeted and performed a rapid initial assessment of this patient. A comprehensive ED assessment and evaluation of the patient, analysis of test results and completion of the medical decision making process will be conducted by additional ED providers. TRAVEL OUTSIDE OF THE [place] IN LAST 30 DAYS: No - Related Data Allergies/Adverse Reactions: No Known Allergies Allergy (Verified 11/14/19 10:00) Home Medications: losarten, eloquis, metoprolol Past Medical History - Social History Chew tobacco use (# tins/day): No Frequency of alcohol use: None Drug Abuse: None - Past Medical History Cardiac Medical History: Reports: Hx Atrial Fibrillation, Hx Hypertension - on meds Denies: Hx Coronary Artery Disease Pulmonary Medical History: Denies: Hx Asthma, Hx Bronchitis, Hx COPD, Hx Pneumonia Neurological Medical History: Denies: Hx Cerebrovascular Accident, Hx Seizures Renal/ Medical History: Denies: Hx Peritoneal Dialysis Musculoskeltal Medical History: Denies Hx Arthritis - Immunizations Hx Diphtheria, Pertussis, Tetanus Vaccination: Yes Physical Exam - Vital signs Vitals: Temp Pulse Resp BP Pulse Ox 97.6 F 80 20 147/86 H 98 11/14/19 09:45 11/14/19 09:45 11/14/19 09:45 11/14/19 09:45 11/14/19 09:45 Course - Vital Signs Vital signs: Temp Pulse Resp BP Pulse Ox 97.6 F 80 20 147/86 H 98 11/14/19 09:45 11/14/19 09:45 11/14/19 09:45 11/14/19 09:45 11/14/19 09:45 Doctor's Discharge - Discharge Referrals: FESTUS JESSICA MD [Primary Care Provider] - Follow up as needed
[2019-11-14 10:40] LABS: ABSOLUTE BASOPHILS # (AUTO) 0.1 10^3/uL (0.0-0.2); ABSOLUTE EOSINOPHILS # (AUTO) 0.2 10^3/uL (0.0-0.6); ABSOLUTE MONOCYTES (AUTO) 0.8 10^3/uL (0.1-1.4); BASOPHILS % (AUTO) 1.1 % (0-2); EOSINOPHILS % (AUTO) 2.8 % (0-6); HEMATOCRIT 44.7 % (37.9-51.0); HEMOGLOBIN 14.8 g/dL (13.5-17.0); LYMPHOCYTES % (AUTO) 32.8 % (13-45); MEAN CORPUSCULAR HEMOGLOBIN 29.6 pg (27.0-33.4); MEAN CORPUSCULAR HGB CONC 33.1 g/dL (32.0-36.0); MEAN CORPUSCULAR VOLUME 89 fl (80-97); MONOCYTES % (AUTO) 13.4 % (3-13); PLATELET COUNT 320 10^3/uL (150-450); RED CELL DISTRIBUTION WIDTH 13.2 % (11.5-14.0); SEGMENTED NEUTROPHILS % (AUTO) 49.9 % (42-78); TOTAL CELLS COUNTED % (AUTO) 100 %
[2019-11-14 10:59] LABS: APPEARANCE,URINE SLIGHTLY-CLOUDY; BILIRUBIN,URINE NEGATIVE (NEGATIVE); COLOR,URINE RED; GLUCOSE, URINE NEGATIVE (NEGATIVE); KETONES,URINE NEGATIVE (NEGATIVE); LEUKOCYTE ESTERASE,URINE NEGATIVE (NEGATIVE); NITRITE,URINE NEGATIVE (NEGATIVE); PROTEIN,URINE 30 mg/dL (NEGATIVE); URINE SPECIFIC GRAVITY 1.012; UROBILINOGEN,URINE NEGATIVE mg/dL (<2.0)
[2019-11-14 11:02] LABS: ALBUMIN 4.6 g/dL (3.5-5.0); ALKALINE PHOSPHATASE 93 U/L (38-126); ANION GAP 9 (5-19); ASPARTATE AMINO TRANSFERASE 29 U/L (17-59); BILIRUBIN,DIRECT 0.2 mg/dL (0.0-0.4); BILIRUBIN,TOTAL 0.7 mg/dL (0.2-1.3); BLOOD UREA NITROGEN 26 mg/dL (7-20); CALCIUM 9.9 mg/dL (8.4-10.2); CARBON DIOXIDE 29 mmol/L (22-30); CHLORIDE 102 mmol/L (98-107); GLUCOSE 97 mg/dL (75-110); POTASSIUM 4.5 mmol/L (3.6-5.0); TOTAL PROTEIN 7.8 g/dL (6.3-8.2)
--- NOTE | 2019-11-14 11:42 | ER Document Report ---
ED General - General Chief Complaint: Urinary Problem Stated Complaint: URINARY ISSUE Time Seen by Provider: 11/14/19 10:00 Primary Care Provider: FESTUS JESSICA MD [PEDIATRICS] - Follow up as needed Mode of Arrival: Ambulatory TRAVEL OUTSIDE OF THE [place] IN LAST 30 DAYS: No - Related Data Allergies/Adverse Reactions: No Known Allergies Allergy (Verified 11/14/19 10:00) Home Medications: losarten, eloquis, metoprolol Past Medical History - General Information source: Patient - Social History Smoking Status: Never Smoker Chew tobacco use (# tins/day): No Frequency of alcohol use: None Drug Abuse: None Family History: None Patient has suicidal ideation: No Patient has homicidal ideation: No - Past Medical History Cardiac Medical History: Reports: Hx Atrial Fibrillation, Hx Hypertension - on meds Denies: Hx Coronary Artery Disease Pulmonary Medical History: Denies: Hx Asthma, Hx Bronchitis, Hx COPD, Hx Pneumonia Neurological Medical History: Denies: Hx Cerebrovascular Accident, Hx Seizures Renal/ Medical History: Denies: Hx Peritoneal Dialysis Musculoskeletal Medical History: Denies Hx Arthritis - Immunizations Hx Diphtheria, Pertussis, Tetanus Vaccination: Yes Physical Exam - Vital signs Vitals: Temp Pulse Resp BP Pulse Ox 97.6 F 80 20 147/86 H 98 11/14/19 09:45 11/14/19 09:45 11/14/19 09:45 11/14/19 09:45 11/14/19 09:45 Course - Vital Signs Vital signs: Temp Pulse Resp BP Pulse Ox 98.1 F 75 18 127/84 H 96 11/14/19 11:27 11/14/19 11:27 11/14/19 11:27 11/14/19 11:27 11/14/19 11:27 - Laboratory Result Diagrams: 11/14/19 10:13 11/14/19 10:13 Laboratory results interpreted by me: 11/14/19 11/14/19 11/14/19 10:12 10:13 10:13 [place] % (Auto) 13.4 H BUN 26 H Urine Protein 30 H Urine Blood LARGE H Discharge - Discharge Clinical Impression: On apixaban therapy Hematuria Qualifiers: Hematuria type: gross Qualified Code(s): R31.0 - Gross hematuria Condition: Fair Disposition: HOME, SELF-CARE Additional Instructions: Today you have some blood in your urine but no evidence of kidney dysfunction or infection. You look well and you are not having symptoms otherwise. Your other blood count on your blood labs looks fine and you do not have any signs of blood loss. Therefore this might be the least worsened by using Eliquis therefore talk to Dr. Han Mcgarry. We agreed a plan can be that starting tomorrow for your Eliquis you can start reducing the dose you take in the morning and the dose at nighttime by half but still take it twice a day. Your urine should start to clear at least some if Eliquis was causing this partly. I am speaking with a urologist from [facility] who does see patients in [place] once a week. We will let you know what day you can go into see him because you also may need evaluation of your bladder and prostate to see why you are having or had an episode of blood in your urine. If you begin to develop clots or trouble getting the urine out please come see us in the emergency department sooner. But as long as you are peeing your full amount without any difficulty or strain or blockage please follow-up with Dr. Mcgarry on either this Tuesday or Tuesday at 10 AM he says. I will get in touch with the urologist, as I am waiting for him to return my call therefore I can call you if you give us a good working number and tell you when he will be able to follow-up with him. Referrals: FESTUS JESSICA MD [PEDIATRICS] - Follow up as needed
[2019-11-14 13:31] VITALS: BP 127/94
== END 2019-11-14 13:27 | disposition home or self-care (01) ==
LOC: ER 09:38
DX: R31.0 Gross hematuria (principal); R39.198 Other difficulties with micturition; I48.91 Unspecified atrial fibrillation; I10 Essential (primary) hypertension; Z79.899 Other long term (current) drug therapy; Z79.01 Long term (current) use of anticoagulants
CPT/HCPCS: 36415; 80053; 81001; 85025; 99283